=== PATIENT | female | born 2000 | race Caucasian/White ===

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

== ENCOUNTER 2020-07-26 18:25 | Emergency (ER) | payer MEDICAID, OTHER ==
[~2020-07-26] VITALS: Ht 165.1 cm; Wt 61.0 kg
[2020-07-26 18:32] VITALS: BP 129/85
[2020-07-26] MEDS ORDERED: SODIUM CHLORIDE 0.9% 1,000 ML IV ONE (19:00)
[2020-07-26 19:22] LABS: BASOPHILS % 0.3 % (0.0-2.0); CHLORIDE 106 mEq/L (98-107); EOSINOPHILS % 1.2 % (0.0-5.0); HEMATOCRIT. 35.8 % (36.0-48.0); HEMOGLOBIN. 11.8 g/dL (12.0-16.0); LYMPHOCYTES % 15.4 % (20.0-50.0); MEAN CORPUSCULAR HEMOGLOBIN 24.9 pg (28.0-32.0); MEAN CORPUSCULAR VOLUME 75.9 fL (81.0-99.0); MEAN PLATELET VOLUME 7.6 fl (7.4-10.4); MONOCYTES % 4.4 % (2.0-8.0); NEUTROPHILS % 78.7 % (40.0-76.0); PLATELET 399 x1000/uL (130-400); RED BLOOD CELL COUNT 4.72 mill/uL (4.2-5.4); RED CELL DISTRIBUTION WIDTH 13.7 % (11.6-14.6)
[2020-07-26 19:24] LABS: HCG SCREEN NEGATIVE
[2020-07-26 19:26] LABS: INR 1.1; PROTHROMBIN TIME 11.4 sec (9.6-11.0)
[2020-07-26 19:27] LABS: ETHANOL BLOOD < 10 mg/dL
[2020-07-26 19:28] LABS: CLARITY URINE CLOUDY (CLEAR); COLOR URINE YELLOW (YELLOW); KETONES URINE NEGATIVE (NEGATIVE); LEUKOCYTE ESTERASE URINE 1+ (NEGATIVE); NITRITE URINE NEGATIVE (NEGATIVE); OCCULT BLOOD URINE NEGATIVE (NEGATIVE); PROTEIN URINE NEGATIVE (NEGATIVE); SPECIFIC GRAVITY URINE 1.013 (1.005-1.030); UROBILINOGEN URINE 0.2 E.U./dL (0.2-1.0)
[2020-07-26 19:46] LABS: *AMPHETAMINES SCREEN URINE NEGATIVE (NEGATIVE)
[2020-07-26 19:47] LABS: *BENZODIAZEPINES SCREEN URINE NEGATIVE (NEGATIVE); *COCAINE SCREEN URINE NEGATIVE (NEGATIVE)
[2020-07-26 19:48] LABS: *BARBITURATES SCREEN URINE NEGATIVE (NEGATIVE); CANNABINOID URINE SCREEN NEGATIVE (NEGATIVE); METHADONE URINE SCREEN NEGATIVE (NEGATIVE); OPIATES URINE SCREEN NEGATIVE (NEGATIVE); PHENCYCLIDINE URINE SCREEN NEGATIVE (NEGATIVE)
[2020-07-26] MEDS ORDERED: CEPHALEXIN 250MG CAPSULE PO NR (20:45)
[2020-07-26] MEDS ORDERED: CEPH250C2 MT (21:38)
== END 2020-07-26 21:45 | disposition home or self-care (01) ==
LOC: ER 18:25
DX: R42 Dizziness and giddiness (principal); R55 Syncope and collapse; D64.9 Anemia, unspecified; J45.909 Unspecified asthma, uncomplicated; Z98.890 Other specified postprocedural states
CPT/HCPCS: 36415; 71045; 80053; 80305; 80320; 81003; 81025; 84703; 85025; 85610; 86850; 86900; 86901; 93005; 96360; 99285; J7030; 99284; G0480

== ENCOUNTER 2020-08-13 23:50 | Emergency (ER) | payer MEDICAID ==
[~2020-08-13] VITALS: Ht 165.1 cm; Wt 85.0 kg
[~2020-08-13 23:50] MED LIST changes: +CEPH250C2 MT
[2020-08-14] MEDS ORDERED: PREDNISONE 20MG TABLET PO ONE (00:15)
[2020-08-14] MEDS ORDERED: ACETAMINOPHEN 325MG TABLET PO ONE (00:15)
[2020-08-14] MEDS ORDERED: FAMOTIDINE 20MG TABLET PO ONE (00:15)
[2020-08-14] MEDS ORDERED: CEPH500C2 MT (00:20)
[2020-08-14] MEDS ORDERED: P50 MT (00:20)
[2020-08-14 00:50] VITALS: BP 120/72
== END 2020-08-14 00:56 | disposition home or self-care (01) ==
LOC: ER 23:50
DX: T78.40XA Allergy, unspecified, initial encounter (principal); K21.9 Gastro-esophageal reflux disease without esophagitis; Z98.890 Other specified postprocedural states; X58.XXXA Exposure to other specified factors, initial encounter
CPT/HCPCS: 99284; J7512

== ENCOUNTER 2020-08-22 15:41 | Emergency (ER) | payer OTHER, MEDICAID ==
[~2020-08-22] VITALS: Ht 167.6 cm; Wt 59.0 kg
[~2020-08-22 15:41] MED LIST changes: +CEPH500C2 MT; +P50 MT
[2020-08-22] MEDS ORDERED: ACETAMINOPHEN 325MG TABLET PO ONE (16:15)
[2020-08-22 17:05] VITALS: BP 127/79
[2020-08-22] MEDS ORDERED: TETRACAINE 0.5% OPHTH DROPS 4ML LEFTEYE ONE (18:00)
[2020-08-22] MEDS ORDERED: FLUORESCEIN SODIUM 1MG/STRIP LEFTEYE ONE (18:15)
== END 2020-08-22 19:10 | disposition home or self-care (01) ==
LOC: ER 15:41
DX: S13.4XXA Sprain of ligaments of cervical spine, initial encounter (principal); S93.691A Other sprain of right foot, initial encounter; H53.8 Other visual disturbances; Y07.499 Other family member, perpetrator of maltreatment and neglect; T71.193A Asphyxiation due to mechanical threat to breathing due to other causes, assault, initial encounter; Y03.0XXA Assault by being hit or run over by motor vehicle, initial encounter; Y04.2XXA Assault by strike against or bumped into by another person, initial encounter; Y93.89 Activity, other specified; Y92.488 Other paved roadways as the place of occurrence of the external cause
CPT/HCPCS: 72040; 73630; 99284